=== PATIENT | female | born 1975 | race Caucasian/White ===

== ENCOUNTER 2022-04-08 21:37 | Emergency (ER) | payer OTHER, SELFPAY ==
[2022-04-08 21:53] VITALS: BP 160/101; PULSE 74; RESP 18; TEMP 36.7; O2SAT 97; BMI 36.0
--- NOTE | 2022-04-08 22:42 | ED.NURSE ---
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
[2022-04-08 23:20] LABS: Hemoglobin* 16.8 gm/dL (12.0-16.0); Red Blood Count 5.13 m/uL (4.00-5.20); White Blood Count* 7.08 K/uL (4.50-11.00)
[2022-04-08 23:21] LABS: Basophils Percent Auto 0.4 % (0.0-3.0); Eosinophils Percent Auto 1.6 % (0.0-7.0); Hematocrit 48.6 % (33.0-51.0); Immature Granulocytes Pct Auto 0.7 %; Lymphocytes Percent Auto 25.8 % (20-44); Mean Corpuscular HGB Conc 35 gm/dL (32-36); Mean Corpuscular Hemoglobin 33 pg (26-34); Mean Corpuscular Volume 95 fL (80-100); Monocytes Percent Auto 8.3 % (0.0-11.0); Neutrophils Percent Auto 63.2 % (42.0-72.0); Platelet Count* 229 K/uL (140-440); Slide Review Reflex No
--- NOTE | 2022-04-08 23:23 | ED_ITS ---
HPI - GI Bleed General Chief complaint: GI Bleed Stated complaint: Ruptured hemorrhoid Time Seen by Provider: 04/08/22 22:12 History of Present Illness HPI Narrative: Patient is a 46-year-old woman with history of internal and external hemorrhoids who presents with brisk bright red blood per rectum. She has had no fevers no chills no night sweats. She is concerned that she may have lost too much blood in the last several days. She does feel like the area of bleeding is slowing down a becoming less swollen. She has had no other significant symptoms and otherwise feels well. No abdominal pain has been noted. She is not on blood thinners. Related Data Home Medications Medication Instructions Recorded Confirmed Release 04/08/22 Allergies Allergy/AdvReac Type Severity Reaction Status Date / Time shrimp Allergy Severe Swelling Verified 04/08/22 22:01 of Lip/Tongue/Throat crab legs Allergy Severe Swelling Uncoded 04/08/22 22:01 of Lip/Tongue/Throat Review of Systems Status of ROS: Reports: 10 or more systems reviewed and unremarkable except as noted in History and below Exam Narrative: Exam Narrative: EXAM GENERAL: Patient appears comfortable and well. EYES: No scleral icterus. LYMPH: No supraclavicular or cervical lymphadenopathy. SKIN: Visible skin seen during exam normal or with benign process only. EXT: No dependent lower extremity pedal edema. HEART: Regular rate and rhythm with no murmurs, rubs, or gallops. LUNGS: Clear to auscultation bilaterally with no crackles or wheezes. ABD: Soft, non tender, non distended. Rectal exam shows a deflated hemorrhoid with no acute bleeding. PSYCH: Good eye contact, speech is not pressured. Const: Vital Signs, click to edit/add: Vital Signs - 24 hr 04/08/22 21:53 Temperature 98.1 F Pulse Rate [Right Pulse Oximeter] 74 Respiratory Rate 18 Blood Pressure [Le ft Upper Arm] 160/101 H Pulse Oximetry 97 Course Course Hospital Course: CBC shows hemoglobin of 16.8. Vital signs are stable. Vital Signs Vital signs: Initial Vital Signs Temperature 98.1 F 04/08/22 21:53 Temperature Source Temporal Artery Scan 04/08/22 21:53 Pulse Rate 74 04/08/22 21:53 Pulse Rhythm 04/08/22 21:53 Pulse Strength 3+ Normal 04/08/22 21:53 Respiratory Rate 18 04/08/22 21:53 Blood Pressure 160/101 H 04/08/22 21:53 Blood Pressure Mean 120 04/08/22 21:53 Blood Pressure Position Supine 04/08/22 21:53 Pulse Oximetry 97 04/08/22 21:53 Oxygen Delivery Method 04/08/22 21:53 Vital Signs Temperature 98.1 F 04/08/22 21:53 Pulse Rate 74 04/08/22 21:53 Respiratory Rate 18 04/08/22 21:53 Blood Pressure 160/101 H 04/08/22 21:53 Pulse Oximetry 97 04/08/22 21:53 Temperature 98.1 F 04/08/22 21:53 Pulse Rate 74 04/08/22 21:53 Respiratory Rate 18 04/08/22 21:53 Blood Pressure 160/101 H 04/08/22 21:53 Pulse Oximetry 97 04/08/22 21:53 MDM - GI Bleed Lab Data Labs: Lab Results 04/08/22 Range/Units 22:42 WBC 7.08 (4.50-11.00) K/uL RBC 5.13 (4.00-5.20) m/uL Hgb 16.8 H (12.0-16.0) gm/dL Hct 48.6 (33.0-51.0) % MCV 95 (80-100) fL MCH 33 (26-34) pg MCHC 35 (32-36) gm/dL Plt Count 229 (140-440) K/uL Neut % (Auto) 63.2 (42.0-72.0) % Lymph % (Auto) 25.8 (20-44) % [place] % (Auto) 8.3 (0.0-11.0) % Eos % (Auto) 1.6 (0.0-7.0) % Baso % (Auto) 0.4 (0.0-3.0) % Neut # (Auto) 4.50 (1.7-7.0) K/uL Lymph # (Auto) 1.80 (0.90-2.90) K/uL [place] # (Auto) 0.60 (0.00-0.90) K/UL Eos # (Auto) 0.10 (0.00-0.50) K/uL Baso # (Auto) 0.00 (0.00-0.30) K/uL Abs Immat Gran (auto) 0.00 (0.00-0.30) K/uL Imm/Tot Granulo (auto) 0.7 % Discharge Plan Discharge Clinical Impression: Hemorrhoids Patient Disposition: Home, Self-Care Condition: Stable Instructions: Hemorrhoids (ED) Activity Level: Activity as Tolerated Discharge Diet: Regular Diet Detail: Soft Prescriptions: No Action Release 0RF Follow Up/Referrals: Clifton Chris MD [Primary Care Provider] - Stand Alone Forms: [facility] Info Instructions
--- NOTE | 2022-04-08 23:43 | ED.NURSE ---
Dr. Mae in room to discuss discharge plan
[2022-04-08 23:45] VITALS: BP 142/96; PULSE 68; RESP 16; O2SAT 95
[2022-04-08 23:55] VITALS: BP 142/96; PULSE 67; RESP 16
== END 2022-04-08 23:56 | disposition home or self-care (01) ==
PROVIDERS: Emergency Provider Internal Medicine; PCP Family Medicine
DX: K64.8 Other hemorrhoids (principal)
CPT/HCPCS: 36415; 85025; 99282; 99283

== ENCOUNTER 2024-01-26 12:33 | Outpatient (CLI) | payer OTHER, SELFPAY | END 2024-01-26 12:34 | disposition home or self-care (01) | LOC: KYNREF 12:35 | PROVIDERS: PCP Family Medicine; Visit Provider Nurse Practitioner Family | DX: I10 Essential (primary) hypertension (principal) | CPT/HCPCS: 80048 ==